=== PATIENT | male | born 1970 | race Caucasian/White ===

== ENCOUNTER 2017-08-11 04:44 | Emergency (ER) | payer OTHER ==
[~2017-08-11] VITALS: Ht 177.8 cm; Wt 93.0 kg
[~2017-08-11 04:44] MED LIST: ANAPROX DS550 MG PO; BACTRIM DS 8001 TAB PO; CARAFATE1 G1 PO; CEPHALEXIN500 M1 PO; FLAGYL500 MG PO; HYDROCODONE BIT1 T11 PO; LEVOFLOXACIN500 MG PO; MEDROL DOSEPAK4 MG PO; MOTRIN800 MG PO; Motrin,Rufen800 MG PO; OMNICEF300 MG PO; PEPCID20 MG PO; RISPERDAL4 M1 PO; ROBITUSSIN-AC 160 ML PO; VALIUM10 MG PO; VICODIN 5/500 505 MG PO; XANAX0.25 MG PO; ZOFRAN ODT4 MG SL
[2017-08-11 04:50] VITALS: BP 140/68
[2017-08-11] MEDS ORDERED: MEDROL DOSEPAK4 MG PO (05:19)
[2017-08-11] MEDS ORDERED: PROVENTIL HFA6.7 GM DEVI (05:19)
[2017-08-11] MEDS ORDERED: TYLENOL W/CODEI1 TA4 PO (05:19)
[2017-08-11] MEDS ORDERED: ZITHROMAX250 MG PO (05:21)
== END 2017-08-11 05:24 | disposition home or self-care (01) ==
LOC: ED 04:44
DX: J40 Bronchitis, not specified as acute or chronic (principal); F17.200 Nicotine dependence, unspecified, uncomplicated; Z79.899 Other long term (current) drug therapy